=== PATIENT | female | born 1960 | race Caucasian/White ===

== ENCOUNTER 2016-10-17 21:34 | Emergency (ER) | payer OTHER ==
--- NOTE | 2016-10-18 05:52 | ED ORDER SUMMARY ---
..... Patient: SANDI FISHER OrderSheet [facility] VisitID: [id number] [address] [place] [address] 56y, F Registration Date/Time: 10/17/2016 ORDER SHEET Weight: 77.1 kg (estimated) Allergies: Naprosyn GENERAL ORDERS: CBC w Diff Urgent (22:05 10/17/2016 Gricelda Munguia) (Ack 22:07 ADRIÁNoerner) (22:30 KWilliams R.N.) CMP Urgent (22:05 10/17/2016 Gricelda Munguia) (Ack 22:07 Laureanorner) (22:30 KWilliams R.N.) UA-Culture if indicated Urgent (22:05 10/17/2016 Gricelda Munguia) (Ack 22:07 Jaysonner) (23:23 KWilliams R.N.) Urine Drug Screen Urgent (22:05 10/17/2016 Gricelda Munguia) (Ack 22:07 Laureanorner) (23:23 KWilliams R.N.) Ethyl Alcohol Urgent (22:05 10/17/2016 Gricelda Munguia) (Ack 22:07 Laureanorner) (22:30 KWilliams R.N.) Acetaminophen Level Urgent (22:05 10/17/2016 Gricelda Munguia) (Ack 22:07 Laureanorner) (22:30 KWilliams R.N.) Salicylate Level Urgent (22:05 10/17/2016 Gricelda Munguia) (Ack 22:07 ADRIÁNoerner) (22:30 KWilliams R.N.) MEDICATION ORDERS: IV FLUIDS: IV Saline Lock (22:05 10/17/2016 Gricelda Munguia) (22:30 KWilliams R.N.) ORDER SHEET NOTES: [Electronically signed by Ra Coburn R.N. (09:10/18/2016)] [Electronically signed by Nakul Mayo Dr. (10:10 10/18/2016)] [Electronically locked/signed by Ra Coburn R.N. (09:10/18/2016)]
--- NOTE | 2016-10-18 05:52 | ED CLINICAL REPORT ---
Clinical Report - Physicians/Mid Levels [facility] [address] [place] [address] 10/17/2016 21:36 Patient: SANDI FISHER Time Seen: 21:57; initial patient contact. Arrived- By private vehicle. Historian- patient. HISTORY OF PRESENT ILLNESS Chief Complaint: DEPRESSED and SUICIDAL THOUGHTS. This started today. The patient is non-compliant with medication. Recent heavy alcohol consumption. She is under influence in ED. Has been depressed and had suicidal thoughts. No self-injury inflicted. The symptoms are described as moderate. No injury is present. Additional history - Long psych history, suicide attempt several months ago from taking Zoloft. Similar symptoms previously: Recent medical care: Not recently seen/assessed. REVIEW OF SYSTEMS No headache or vomiting. All systems otherwise negative, except as recorded above. PAST HISTORY Prior suicide attempt. ( Drug Poisoning. Previous Psychiatric Treatment. Bipolar Disorder. Depression. ADDITIONAL SURGERIES: Appendectomy.). SOCIAL HISTORY Smoker - current status unknown. Heavy alcohol use. No drug use. Has social support. Has place to stay. ADDITIONAL NOTES The nursing notes have been reviewed. PHYSICAL EXAM Vital Signs: 10/17/2016 22:11 BP: 168/86. HR: 125. RR: 16. O2 saturation: 98%. Temp: 97.6 F. Have been reviewed. Hypertensive. Tachycardic. Respiratory rate normal. Temperature normal. Oxygen saturation normal. Appearance: Alert. No acute distress. Appearance is normal. ENT: The mucous membranes are not dry. CVS: Normal heart rate and rhythm. Heart sounds normal. Respiratory: No respiratory distress. Breath sounds normal. Abdomen: Soft and nontender. Skin: Skin warm and dry. Normal skin color. Extremities: No lower extremity edema. Psych / Neuro: Oriented X 3. Mood and affect normal. Speech is abnormal (stuttering). Cognition normal. Thought process and content normal. She does not appear to understand hers illness or feel treatment is necessary. She seems unconcerned about hers current condition. LABS, X-RAYS, AND EKG Laboratory Tests: UA-Culture if indicated: (SANDRA: 10/17/2016 22:45) ( MsgRcvd 10/17/2016 23:02) Final results Test Result Flag Units (Reference) URINE COLOR YELLOW URINE APPEARANCE CLEAR URINE GLUCOSE NEGATIVE (NEGATIVE) URINE BILIRUBIN NEGATIVE (NEGATIVE) URINE KETONE NEGATIVE (NEGATIVE) URINE SPECIFIC GRAVITY <= 1.005 L (1.010-1.030) URINE PH 6.0 (5.0-8.0) URINE PROTEIN NEGATIVE (NEGATIVE) URINE UROBILINOGEN 0.2 EU/dL (0.2-1.0) URINE NITRITE NEGATIVE (NEGATIVE) URINE BLOOD 1+ (NEGATIVE) URINE LEUK ESTERASE NEGATIVE (NEGATIVE) URINE RBC NONE SEEN rbc/hpf (0-1) URINE WBC RARE wbc/hpf (0-1) URINE EPITHELIAL CELLS NONE SEEN EPI/hpf (0-5) URINE BACTERIA NONE SEEN (NONE SEEN) URINE COMMENT CULT NOT INDICATED 1+ AMORPHOUSURINE CULTURES ARE SET-UP BASED ON THE FOLLOWING CRITERIA:POSITIVE NITRITEPOSITIVE LEUKOCYTE ESTERASEGREATER THAN 10 WHITE BLOOD CELLSMODERATE (2+) OR GREATER BACTERIA CBC w Diff: (SANDRA: 10/17/2016 22:27) ( [facility] 10/17/2016 22:35) Final results Test Result Flag Units (Reference) WHITE BLOOD COUNT 8.7 K/uL (4.5-11.5) RED BLOOD COUNT 4.96 M/uL (4.00-5.20) HEMOGLOBIN 14.8 gm/dL (12.0-16.0) HEMATOCRIT 43.0 % (36.0-46.0) MEAN CELL VOLUME 87 fL (80-100) MEAN CORPUSCULAR HGB 30 pg (26-34) MEAN CORPUSCULAR HGB CONC 34 g/dL (31-37) RED CELL DISTRIBUTION WIDTH 13.1 % (11.6-14.8) PLATELET COUNT 379 K/uL (150-400) NEUTROPHIL % 53.1 % (50-75) LYMPH % 37.0 % (25-40) MONO % 5.9 % (3-14) EOSINOPHIL % 2.3 % (0-4) BASOPHIL % 1.7 % (0-2) Urine Drug Screen: (SANDRA: 10/17/2016 22:45) ( [facility] 10/17/2016 23:08) Final results Test Result Flag Units (Reference) AMPHETAMINE/METHAMPHETAMINE NEGATIVE (NEGATIVE) BARBITURATE NEGATIVE (NEGATIVE) BENZODIAZEPINE NEGATIVE (NEGATIVE) CANNABINOID NEGATIVE (NEGATIVE) COCAINE NEGATIVE (NEGATIVE) ECSTASY NEGATIVE (NEGATIVE) METHADONE NEGATIVE (NEGATIVE) OPIATE NEGATIVE (NEGATIVE) The urine drug screen is a qualitative screening test fordrug overdose and abuse. All screen results should beconsidered as presumptive.Drugs screened for are as follows:BenzodiazepinesCocaineAmphetamines/MetamphetaminesTHC (Tetrahydrocannabinol)OpiatesBarbituratesEcstasyMethadonePositive results are unconfirmed. For confirmation, notifythe lab for the specimen to be sent to the reference lab.All confirmations must be performed by a differentmethodology.The ingestion of natural herbal and plant productscontaining Ephedra/Ephedra metabolites can produce in urineone or more substances capable of cross reacting withamphetamine/methamphetamine immunoassays. These testsprovide a preliminary result only. A more specificalternative chemical method must be used to obtain aconfirmed analytical result. Salicylate Level: (SANDRA: 10/17/2016 22:27) ( MsgRcvd 10/17/2016 22:43) Final results Test Result Flag Units (Reference) SALICYLATE 5.1 mg/dL (2.8-20) CMP: (SANDRA: 10/17/2016 22:27) ( OrgRcvd 10/17/2016 22:48) Final results Test Result Flag Units (Reference) GLUCOSE 116 H mg/dL (70-110) BUN 7 mg/dL (7-18) CREATININE 0.9 mg/dL (0.6-1.3) Estimated GFR >60 mL/min Estimated GFR- >60 mL/min Note: Persistent reduction over 3 months in eGFR<60 mL/min/1.73 m2 defines CKD. Patients with eGFR values>=60 mL/min/1.73 m2 may also have CKD if evidence ofpersistent proteinuria. Additional information may be foundat www.kidney.org. SODIUM 141 mmol/L (136-145) POTASSIUM 3.5 mmol/L (3.5-5.1) CHLORIDE 105 mmol/L (98-107) CARBON DIOXIDE 21 mmol/L (21-32) CALCIUM 8.6 mg/dL (8.5-10.1) TOTAL PROTEIN 7.9 g/dL (6.4-8.2) ALBUMIN 4.2 g/dL (3.3-5.0) BILIRUBIN, TOTAL 0.2 mg/dL (0.0-1.0) ALKALINE PHOSPHATASE 89 U/L (46-116) AST (SGOT) 19 U/L (15-37) ALT (SGPT) 28 U/L (12-78) ACETAMINOPHEN < 2 L ug/mL (10-30) ETHYL ALCOHOL 230 H mg/dL (3-10) . PROGRESS AND PROCEDURES Course of Care: Pt has been assessed by PAT team and accepted at Triage center. CLINICAL IMPRESSION Recurrent moderate major depressive disorder without psychosis and with suicidal ideation. Suicidal ideation INSTRUCTIONS Follow-up: Screening today revealed the patient's blood pressure to be in the normal range. (Electronically signed by Nakul Mayo Dr. 10/18/2016 10:10)
--- NOTE | 2016-10-18 05:52 | ED NURSING NOTES ---
Clinical Report - Nurses [facility] [address] [place] [address] 10/17/2016 21:36 [id number] Triage time 2145. Acuity: LEVEL 2. Chief Complaint: SUICIDAL THOUGHTS and BIZARRE BEHAVIOR. 22:11 10/17/16. Alert. BRITTANY COMA SCORE: Charlotte Coma Scale: 12- eyes open spontaneously (4); best verbal response- incoherent speech (2); best motor response- obeys commands (6). --22:11 Maria Victoria Arriaga R.N. 22:11 10/17/16. BP: 168/86. HR: 125. RR: 16. O2 saturation: 98%. Temp: 97.6 F. --22:11 Maria Victoria Arriaga R.N. Weight: 77.1 kg estimated. Height/Length: 62 inches Estimated. BMI: 31.1. --22:09 Maria Victoria Arriaga R.N. Medications None. --23:58 Maria Victoria Arriaga R.N. Allergies Naprosyn.(diarrhea) --23:58 Maria Victoria Arriaga R.N. History Arrived by private vehicle, and accompanied by friend. Primary physician (juan daniel). ( brought in by friend for statements of harming herself today. Friend states the pt has "undiagnosed mental health problems" and was seen by [facility] counselor today. pt is stuttering in triage, most of speech is uncomprehendable. Repeating, "there's something going on with my brain." Unable to answer questions. Lives alone per friend. Friend states patient binges on etoh. Resistant to care, attempts to keep walking out of room.). Onset: today. SOCIAL HX: Alcohol use. SELF HARM ASSESSMENT: A self harm assessment was performed. The friend reported the patient's behavior included suicidal comments and as anxious. In the ED the patient has been agitated and restless. She has been placed under continuous supervision with a friend at bedside. FALL RISK ASSESSMENT: Fall risk assessment completed. No fall risk identified. NUTRITIONAL RISK ASSESSMENT: The nutritional risk assessment revealed no deficiencies. FUNCTIONAL ASSESSMENT: Functional assessment: no impairments noted. SKIN INTEGRITY ASSESSMENT: Skin integrity risk assessment completed. No skin integrity risk identified. --22:11 Maria Victoria Arriaga R.N. SOCIAL HX: Smoker- current status unknown. --22:37 Maria Victoria Arriaga R.N. PROBLEMS: Drug Poisoning. Previous Psychiatric Treatment. Bipolar Disorder. Depression. --23:58 Maria Victoria Arriaga R.N. ADDITIONAL SURGERIES: Appendectomy. --23:58 Maria Victoria Arriaga R.N. Interventions ID band on patient. To treatment room. --22:11 Maria Victoria Arriaga R.N. PHYSICAL ASSESSMENT 22:13 10/17/16. Ambulatory to room. GENERAL / NEURO / PSYCH: Appears anxious. Patient's speech is incoherent (stuttering). Poor eye contact. Appears agitated. RESPIRATORY: Respirations not labored. CVS: Capillary refill less than 2 seconds. GI / : Abdomen soft. SKIN: Skin is warm and dry. --22:13 Maria Victoria Arriaga R.N. NURSING PROGRESS NOTES Suicide precautions maintained: a safety sweep of the room has been completed. Continuous one on one supervision, clothing / valuables removed and placed at the nurse's station. Patient placed in direct sight of the nurse's station. ED Physician has been notified. --22:14 Maria Victoria Arriaga R.N. Patient gowned. --22:14 Maria Victoria Arriaga R.N. Patient ready for evaluation- chart flagged. --22:14 Maria Victoria Arriaga R.N. 22:25 10/17/2016 Site #1 started via IV in the left wrist with an 20g angiocath, with aseptic technique and good blood return; one attempt. Blood drawn: rainbow set. Labeled in the presence of the patient and sent to the lab. Saline lock flushed with 10 mL saline. --22:30 Maria Victoria Arriaga R.N. ( speech is improved from triage, patient able to answer some questions from RN. She states she had 3 drinks today). GENERAL / NEURO / PSYCH: The patient reports restlessness. --22:37 Maria Victoria Arriaga R.N. Overall patient status is the same. --23:23 Maria Victoria Arriaga R.N. 23:34 10/17/16. The patient is sleeping. ( friend at bedside). --23:34 Maria Victoria Arriaga R.N. 22:00. 8 fr in/out catheterization. During procedure hand hygiene observed and sterile equipment and aseptic technique used. Return of less than 50 mL clear urine; odor is normal. She tolerated procedure well. Patient ID band checked for patient name and birthdate: patient confirmed. Instructions provided to collect clean catch urine and patient verbalized understanding. Catheterized urine collected with return of clear urine; odor is normal; sample sent to lab for urinalysis, culture and drug screen. Specimen labeled in the presence of the patient. --23:42 Maria Victoria Arriaga R.N. 00:11 10/18/16. BP: 127/72. HR: 90. RR: 16. O2 saturation: 97% on room air. Additional comments: Breathalyzer 0.17. --00:12 McQuoid, Marquita, ER Tech1 00:12 Warm blankets and pillow to patient, lights dimmed. Friend is going home but will be available by telephone. --00:12 McQuoid, Marquita, ER Tech1 The patient is sleeping. --00:51 Maria Victoria Arriaga R.N. 00:58 10/18/16. Patient ready for evaluation- chart flagged (JEROME Castellanos). --00:58 Maria Victoria Arriaga R.N. 01:51 Breathalyzer 0.14. --01:51 McQuoid, Marquita, ER Tech1 02:34 Patient ambulatory to restroom with steady gait. --02:34 McQuoid, Marquita, ER Tech1 01:30 10/18/16. ( Patient resting quietly, no complaints at this time. Patient's washer and crusher tender to leave and return later.). --03:13 Phuong Castañeda ( Patient given PO food and fluids. Patient in good spirits and has no complaints at this time). --03:14 Phuong Castañeda Suicide precautions maintained: a safety sweep of the room is ongoing. Frequent one on one supervision. --03:14 Phuong Castañeda 03:22 Breathalyzer 0.10. --03:22 Felicia, Marquita, ER Tech1 ( PAT team at bedside assessing patient). --03:23 Phuong Castañeda The plan of care for this patient has been created This plan of care was discussed with the patient. The patient reports no complaints and she is resting quietly. --04:47 Phuong Castañeda 06:21 Breakfast tray with mental health precautions to patient. --06:21 McQuoid, Marquita, ER Tech1 Suicide precautions maintained. The patient reports no complaints and she is resting quietly. --06:28 Phuong Castañeda 06:28 10/18/16. BP: 128/74. HR: 96. RR: 20. O2 saturation: 96% on room air. Temp: 98.6 F (oral). Pain level now: 0/10. --06:32 Phuong Castañeda ( Patient provided with breakfast tray.). --06:32 Phuong Castañeda Care transferred and report received (Phuong, RN). --07:12 Ra Coburn R.N. ( Pt is resting quietly in her room, suicide precautions still in place. Pt appears in no acute distress.). --07:18 Ra Coburn R.N. ( Pt resting quietly in room, no distress, suicide precautions in place, awaiting transport by [facility] ETA 0900.). --08:44 Ra Coburn R.N. 09:11 10/18/2016 Site #1 removed upon transfer. Bandage applied. --09:21 Ra Coburn R.N. DISPOSITION / DISCHARGE 09:09 10/18/16. BP: 121/62 (regular adult cuff) taken on the right arm, via an automated monitor, while lying. HR: 102 (regular). RR: 18. Temp: 98.8 F. --09:11 TedLara 09:12 10/18/16. Pain level now: 0/10. --09:12 aR Coburn R.N. Departure time: 09:Oct 18 2016. Condition at departure: improved and stable. The goals identified in the patient's plan of care were met. No learning barriers present. The patient was discharged by the physician. She was discharged ([facility] [place]). She left the Emergency Department via ambulance and ([place]) and on a stretcher. Transferred. Summary of care provided to EMS and transfer facility via paper (:Oct 18 2016). --09:19 Ra Coburn R.N. ( Pt stable, cooperative, ready for transfer to facility, verbalized that she still agrees to get help and continue with transport to Triage center. VSS, denies pain, ambulatory. Report called to Triage Center at 0915. Care transferred.). --09:20 Ra Coburn R.N. Departure time: Oct 18 2016. --09:20 Ra Coburn R.N. 09:11 10/18/16. O2 saturation: 98% on room air. --09:22 Ra Coburn R.N. Locked/Released at 10/18/2016 9:23 by Ra Coburn R.N.
--- NOTE | 2016-10-18 05:52 | ED ORDER SUMMARY ---
..... Patient: SANDI FISHER OrderSheet [facility] VisitID: [id number] [address] [place] [address] 56y, F Registration Date/Time: 10/17/2016 ORDER SHEET Weight: 77.1 kg (estimated) Allergies: Naprosyn GENERAL ORDERS: CBC w Diff Urgent (22:05 10/17/2016 Gricelda Munguia) (Ack 22:07 ADRIÁNoerner) (22:30 KWilliams R.N.) CMP Urgent (22:05 10/17/2016 Gricelda Munguia) (Ack 22:07 Laureanorner) (22:30 KWilliams R.N.) UA-Culture if indicated Urgent (22:05 10/17/2016 Gricelda Munguia) (Ack 22:07 Jaysonner) (23:23 KWilliams R.N.) Urine Drug Screen Urgent (22:05 10/17/2016 Gricelda Munguia) (Ack 22:07 Laureanorner) (23:23 KWilliams R.N.) Ethyl Alcohol Urgent (22:05 10/17/2016 Gricelda Munguia) (Ack 22:07 Laureanorner) (22:30 KWilliams R.N.) Acetaminophen Level Urgent (22:05 10/17/2016 Gricelda Munguia) (Ack 22:07 Laureanorner) (22:30 KWilliams R.N.) Salicylate Level Urgent (22:05 10/17/2016 Gricelda Munguia) (Ack 22:07 ADRIÁNoerner) (22:30 KWilliams R.N.) MEDICATION ORDERS: IV FLUIDS: IV Saline Lock (22:05 10/17/2016 Gricelda Munguia) (22:30 KWilliams R.N.) ORDER SHEET NOTES: [Electronically signed by Ra Coburn R.N. (09:10/18/2016)] [Electronically signed by Nakul Mayo Dr. (10:10 10/18/2016)] [Electronically locked/signed by Ra Coburn R.N. (09:10/18/2016)]
--- NOTE | 2016-10-18 05:52 | ED NURSING NOTES ---
Clinical Report - Nurses [facility] [address] [place] [address] 10/17/2016 21:36 [id number] Triage time 2145. Acuity: LEVEL 2. Chief Complaint: SUICIDAL THOUGHTS and BIZARRE BEHAVIOR. 22:11 10/17/16. Alert. BRITTANY COMA SCORE: [place] Coma Scale: 12- eyes open spontaneously (4); best verbal response- incoherent speech (2); best motor response- obeys commands (6). --22:11 Maria Victoria Arriaga R.N. 22:11 10/17/16. BP: 168/86. HR: 125. RR: 16. O2 saturation: 98%. Temp: 97.6 F. --22:11 Maria Victoria Arriaga R.N. Weight: 77.1 kg estimated. Height/Length: 62 inches Estimated. BMI: 31.1. --22:09 Maria Victoria Arriaga R.N. Medications None. --23:58 Maria Victoria Arriaga R.N. Allergies Naprosyn.(diarrhea) --23:58 Maria Victoria Arriaga R.N. History Arrived by private vehicle, and accompanied by friend. Primary physician (juan daniel). ( brought in by friend for statements of harming herself today. Friend states the pt has "undiagnosed mental health problems" and was seen by [facility] counselor today. pt is stuttering in triage, most of speech is uncomprehendable. Repeating, "there's something going on with my brain." Unable to answer questions. Lives alone per friend. Friend states patient binges on etoh. Resistant to care, attempts to keep walking out of room.). Onset: today. SOCIAL HX: Alcohol use. SELF HARM ASSESSMENT: A self harm assessment was performed. The friend reported the patient's behavior included suicidal comments and as anxious. In the ED the patient has been agitated and restless. She has been placed under continuous supervision with a friend at bedside. FALL RISK ASSESSMENT: Fall risk assessment completed. No fall risk identified. NUTRITIONAL RISK ASSESSMENT: The nutritional risk assessment revealed no deficiencies. FUNCTIONAL ASSESSMENT: Functional assessment: no impairments noted. SKIN INTEGRITY ASSESSMENT: Skin integrity risk assessment completed. No skin integrity risk identified. --22:11 Maria Victoria Arriaga R.N. SOCIAL HX: Smoker- current status unknown. --22:37 Maria Victoria Arriaga R.N. PROBLEMS: Drug Poisoning. Previous Psychiatric Treatment. Bipolar Disorder. Depression. --23:58 Maria Victoria Arriaga R.N. ADDITIONAL SURGERIES: Appendectomy. --23:58 Maria Victoria Arriaga R.N. Interventions ID band on patient. To treatment room. --22:11 Maria Victoria Arriaga R.N. PHYSICAL ASSESSMENT 22:13 10/17/16. Ambulatory to room. GENERAL / NEURO / PSYCH: Appears anxious. Patient's speech is incoherent (stuttering). Poor eye contact. Appears agitated. RESPIRATORY: Respirations not labored. CVS: Capillary refill less than 2 seconds. GI / : Abdomen soft. SKIN: Skin is warm and dry. --22:13 Maria Victoria Arriaga R.N. NURSING PROGRESS NOTES Suicide precautions maintained: a safety sweep of the room has been completed. Continuous one on one supervision, clothing / valuables removed and placed at the nurse's station. Patient placed in direct sight of the nurse's station. ED Physician has been notified. --22:14 Maria Victoria Arriaga R.N. Patient gowned. --22:14 Maria Victoria Arriaga R.N. Patient ready for evaluation- chart flagged. --22:14 Maria Victoria Arriaga R.N. 22:25 10/17/2016 Site #1 started via IV in the left wrist with an 20g angiocath, with aseptic technique and good blood return; one attempt. Blood drawn: rainbow set. Labeled in the presence of the patient and sent to the lab. Saline lock flushed with 10 mL saline. --22:30 Maria Victoria Arriaga R.N. ( speech is improved from triage, patient able to answer some questions from RN. She states she had 3 drinks today). GENERAL / NEURO / PSYCH: The patient reports restlessness. --22:37 Maria Victoria Arriaga R.N. Overall patient status is the same. --23:23 Maria Victoria Arriaga R.N. 23:34 10/17/16. The patient is sleeping. ( friend at bedside). --23:34 Maria Victoria Arriaga R.N. 22:00. 8 fr in/out catheterization. During procedure hand hygiene observed and sterile equipment and aseptic technique used. Return of less than 50 mL clear urine; odor is normal. She tolerated procedure well. Patient ID band checked for patient name and birthdate: patient confirmed. Instructions provided to collect clean catch urine and patient verbalized understanding. Catheterized urine collected with return of clear urine; odor is normal; sample sent to lab for urinalysis, culture and drug screen. Specimen labeled in the presence of the patient. --23:42 Maria Victoria Arriaga R.N. 00:11 10/18/16. BP: 127/72. HR: 90. RR: 16. O2 saturation: 97% on room air. Additional comments: Breathalyzer 0.17. --00:12 McQuoid, Marquita, ER Tech1 00:12 Warm blankets and pillow to patient, lights dimmed. Friend is going home but will be available by telephone. --00:12 McQuoid, Marquita, ER Tech1 The patient is sleeping. --00:51 Maria Victoria Arriaga R.N. 00:58 10/18/16. Patient ready for evaluation- chart flagged (JEROME Castellanos). --00:58 Maria Victoria Arriaga R.N. 01:51 Breathalyzer 0.14. --01:51 McQuoid, Marquita, ER Tech1 02:34 Patient ambulatory to restroom with steady gait. --02:34 McQuoid, Marquita, ER Tech1 01:30 10/18/16. ( Patient resting quietly, no complaints at this time. Patient's longitudinal float operator to leave and return later.). --03:13 Phuong Castañeda ( Patient given PO food and fluids. Patient in good spirits and has no complaints at this time). --03:14 Phuong Castañeda Suicide precautions maintained: a safety sweep of the room is ongoing. Frequent one on one supervision. --03:14 Phuong Castañeda 03:22 Breathalyzer 0.10. --03:22 Felicia, Marquita, ER Tech1 ( PAT team at bedside assessing patient). --03:23 Phuong Castañeda The plan of care for this patient has been created This plan of care was discussed with the patient. The patient reports no complaints and she is resting quietly. --04:47 Phuong Castañeda 06:21 Breakfast tray with mental health precautions to patient. --06:21 McQuoid, Marquita, ER Tech1 Suicide precautions maintained. The patient reports no complaints and she is resting quietly. --06:28 Phuong Castañeda 06:28 10/18/16. BP: 128/74. HR: 96. RR: 20. O2 saturation: 96% on room air. Temp: 98.6 F (oral). Pain level now: 0/10. --06:32 Phuong Castañeda ( Patient provided with breakfast tray.). --06:32 Phuong Castañeda Care transferred and report received (Phuong, RN). --07:12 Ra Coburn R.N. ( Pt is resting quietly in her room, suicide precautions still in place. Pt appears in no acute distress.). --07:18 Ra Coburn R.N. ( Pt resting quietly in room, no distress, suicide precautions in place, awaiting transport by [facility] ETA 0900.). --08:44 Ra Coburn R.N. 09:11 10/18/2016 Site #1 removed upon transfer. Bandage applied. --09:21 Ra Coburn R.N. DISPOSITION / DISCHARGE 09:09 10/18/16. BP: 121/62 (regular adult cuff) taken on the right arm, via an automated monitor, while lying. HR: 102 (regular). RR: 18. Temp: 98.8 F. --09:11 TedLara 09:12 10/18/16. Pain level now: 0/10. --09:12 Ra Coburn R.N. Departure time: 09:Oct 18 2016. Condition at departure: improved and stable. The goals identified in the patient's plan of care were met. No learning barriers present. The patient was discharged by the physician. She was discharged ([facility] [place]). She left the Emergency Department via ambulance and ([place]) and on a stretcher. Transferred. Summary of care provided to EMS and transfer facility via paper (:Oct 18 2016). --09:19 Ra Coburn R.N. ( Pt stable, cooperative, ready for transfer to facility, verbalized that she still agrees to get help and continue with transport to Triage center. VSS, denies pain, ambulatory. Report called to Triage Center at 0915. Care transferred.). --09:20 Ra Coburn R.N. Departure time: Oct 18 2016. --09:20 Ra Coburn R.N. 09:11 10/18/16. O2 saturation: 98% on room air. --09:22 Ra Coburn R.N. Locked/Released at 10/18/2016 9:23 by Ra Coburn R.N.
--- NOTE | 2016-10-18 10:10 | ED MED RECONCILIATION SUMMARY ---
Patient: SANDI FISHER Medication Reconciliation Report [facility] VisitID: [id number] [address] [place] [address] 56y, F Registration Date/Time: 10/17/2016 Weight: 77.1 kg Height/Length: 62 in. BMI: 31.1 ALLERGIES: Naprosyn The patient's Home Medications are listed below: NONE. The source(s) of the original Home Medication information: Not obtained. The following Medications were given to the patient in the Emergency Department: None. The following Medications were prescribed to the patient: None.
--- NOTE | 2016-10-18 10:10 | ED MAR SUMMARY ---
..... Medication Administration Record [facility] [address], [place] [id number] Patient: SANDI FISHER Karly Visit ID: [id number] 56y, F Weight: 77.1 kg Height/Length: 62 in BMI: 31.1 ALLERGIES: Naprosyn
--- NOTE | 2016-10-18 10:10 | ED MAR SUMMARY ---
..... Medication Administration Record [facility] [address] [place], [place] [id number] Patient: SANDI FISHER Karly Visit ID: [id number] 56y, F Weight: 77.1 kg Height/Length: 62 in BMI: 31.1 ALLERGIES: Naprosyn
--- NOTE | 2016-10-18 10:10 | ED DISCHARGE INSTRUCTIONS ---
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 Suicidal ideation INSTRUCTIONS Follow-up: Screening today revealed the patient's blood pressure to be in the normal range. ADDITIONAL INFORMATION Depression Depression is one of the most common mental health problems today. It is not just a state of unhappiness or sadness. It is a true disease. The cause seems to be related to a decrease in chemicals that transmit signals in the brain. Having a family history of depression, alcoholism or suicide increases the risk. Chronic illness, chronic pain, migraine headaches and high emotional stress also increase the risk. Depression can cause many different symptoms, such as: -- Loss of appetite -- Over-eating -- Not being able to sleep -- Sleeping too much -- Tiredness not related to physical exertion -- Restlessness or irritability -- Slowness of movement or speech -- Feeling depressed or withdrawn -- Loss of interest in things you once enjoyed -- Difficulty in concentrating, poor memory, have trouble making decisions -- Thoughts of harming or killing oneself, or thoughts that life is not worth living -- Low self-esteem The best treatment for depression is a combination of medicine and psychotherapy. Antidepressant medicines can reduce suffering and can improve the ability to function during the depressed period. Therapy can offer emotional support and help you understand emotional factors that may be causing the depression. Home Care: 1) Be kind to yourself. Make it a point to do things that you enjoy (gardening, walking in nature, going to a movie, etc.). Reward yourself for small successes. 2) Take care of your physical body. Eat a balanced diet (low in saturated fat and high in fruits and vegetables). Establish an exercise plan at least 3 times a week for 30 minutes. Even mild-moderate exercise (like brisk walking) can make you feel better. 3) Avoid alcohol, which can make depression worse. Follow-Up with your doctor as advised. It is important to keep in contact with a health care provider until your symptoms begin to improve. Get Prompt Medical Attention if any of the following occur: -- Feeling extreme depression, fear, anxiety, or anger toward yourself or others -- Feeling out of control -- Feeling that you may try to harm yourself or another -- Hearing voices that others do not hear -- Seeing things that others do not see -- Cant sleep or eat for 3 days in a row Depression Depression is one of the most common mental health problems today. It is not just a state of unhappiness or sadness. It is a true disease. The cause seems to be related to a decrease in chemicals that transmit signals in the brain. Having a family history of depression, alcoholism or suicide increases the risk. Chronic illness, chronic pain, migraine headaches and high emotional stress also increase the risk. Depression can cause many different symptoms, such as: -- Loss of appetite -- Over-eating -- Not being able to sleep -- Sleeping too much -- Tiredness not related to physical exertion -- Restlessness or irritability -- Slowness of movement or speech -- Feeling depressed or withdrawn -- Loss of interest in things you once enjoyed -- Difficulty in concentrating, poor memory, have trouble making decisions -- Thoughts of harming or killing oneself, or thoughts that life is not worth living -- Low self-esteem The best treatment for depression is a combination of medicine and psychotherapy. Antidepressant medicines can reduce suffering and can improve the ability to function during the depressed period. Therapy can offer emotional support and help you understand emotional factors that may be causing the depression. Home Care: 1) Be kind to yourself. Make it a point to do things that you enjoy (gardening, walking in nature, going to a movie, etc.). Reward yourself for small successes. 2) Take care of your physical body. Eat a balanced diet (low in saturated fat and high in fruits and vegetables). Establish an exercise plan at least 3 times a week for 30 minutes. Even mild-moderate exercise (like brisk walking) can make you feel better. 3) Avoid alcohol, which can make depression worse. Follow-Up with your doctor as advised. It is important to keep in contact with a health care provider until your symptoms begin to improve. Get Prompt Medical Attention if any of the following occur: -- Feeling extreme depression, fear, anxiety, or anger toward yourself or others -- Feeling out of control -- Feeling that you may try to harm yourself or another -- Hearing voices that others do not hear -- Seeing things that others do not see -- Cant sleep or eat for 3 days in a row You have been given the following additional information: Depression Depression (Electronically signed by Nakul Mayo Dr. 10/18/2016 10:10)
--- NOTE | 2016-10-18 10:10 | ED MED RECONCILIATION SUMMARY ---
Patient: SANDI FISHER Medication Reconciliation Report [facility] VisitID: [id number] [address] [place] [address] 56y, F Registration Date/Time: 10/17/2016 Weight: 77.1 kg Height/Length: 62 in. BMI: 31.1 ALLERGIES: Naprosyn The patient's Home Medications are listed below: NONE. The source(s) of the original Home Medication information: Not obtained. The following Medications were given to the patient in the Emergency Department: None. The following Medications were prescribed to the patient: None.
== END 2016-10-18 09:12 ==
LOC: ED SRH 21:34
DX: F33.1 Major depressive disorder, recurrent, moderate (principal); R45.851 Suicidal ideations
CPT/HCPCS: 81460; 90004; 90100; 92010; 92760; 92761; 92762; 92763; 92764; 92765; 92766; 92767; 92780; 95059; 97000